=== PATIENT | male | born 1980 | race African-American/Black ===

== ENCOUNTER 2021-02-17 09:07 | Outpatient (CLI) | payer OTHER, SELFPAY ==
--- NOTE | ~2021-02-17 | US_ITS ---
US renal BI 02/17/2021 09:49 Procedure: Realtime transabdominal ultrasound of the kidneys and bladder. Indication: Proteinuria Comparison: Proteinuria Findings: Renal echotexture is normal bilaterally without hydronephrosis, contour deforming mass or r enal calculus. The right kidney measures 10 cm and left kidney measures 10.7 cm. Bladder within norm al limits. Impression: 1: Unremarkable renal ultrasound. No stones, masses or hydronephrosis. Reviewed, dictated and finalized at location B. Impression: 1: Unremarkable renal ultrasound. No stones, masses or hydronephrosis.
== END 2021-02-17 09:08 | disposition home or self-care (01) ==
LOC: ANHIMG 09:12
PROVIDERS: PCP Emergency Medicine; Visit Provider Emergency Medicine
DX: R80.9 Proteinuria, unspecified (principal)
CPT/HCPCS: 76775

== ENCOUNTER 2023-03-30 12:33 | Emergency (ER) | payer OTHER, SELFPAY ==
--- NOTE | ~2023-03-30 | CT_ITS ---
EXAMINATION: CT abdomen pelvis w con DATE: 03/30/2023 16:50 INDICATION: Constipation. Urinary retention. Low abdominal pain. TECHNIQUE: Computed tomography (CT) of the abdomen and pelvis was performed with 100 mL Omnipaque 350 intravenous contrast. Automated exposure control and iterative reconstruction technique were employe d. The dose-length product was 728.17 mGy-cm. COMPARISON: CT abdomen and pelvis 12/21/2017 FINDINGS: The visualized portions of the lung bases demonstrate mild atelectasis. There are nodules i n right middle lobe measuring up to 5 mm without change, likely benign. No pleural effusion. The hear t size is normal. No pericardial effusion. Calcified mediastinal lymph nodes are consistent with old granulomatous disease. The liver, gallbladder, spleen, pancreas, adrenal glands, and kidneys are norm al. There is a left inguinal hernia containing fat. There are no dilated loops of bowel. The appendix is normal. There are no pathologically enlarged lymph nodes. There is no free intraperitoneal fluid. Again seen is a radiopaque foreign body in the right posterior thorax musculature. There is mild lum bar spondylosis. IMPRESSION: 1. Mildly enlarged prostate. Reviewed, dictated and finalized at location A. 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
[2023-03-30 12:54] VITALS: BP 134/85; PULSE 90; RESP 16; TEMP 36.4; O2SAT 100
--- NOTE | 2023-03-30 14:59 | PC.NURSE ---
pt c/o intermittent problems inserting his straight cath. states sometimes will meet resistance. has to try different body positions and relaxation of anal spincter. never has had this problem until the last 2 weeks. pt also noting a sore sensation inside his rectum. thinks he may have injured it inserting a suppository
--- NOTE | 2023-03-30 15:47 | ED.GENADULT ---
HPI - General Adult General Chief complaint: Urogenital-Male Stated complaint: unable to self cath Time Seen by Provider: 03/30/23 15:18 History of Present Illness HPI narrative: 42-year-old male history of spinal cord injury presenting to the emergency department for evaluation difficulty straight cathing. Patient states intermittently when he is having issues with constipation he has issues with straight cathing. Patient states he is having no difficulty this morning straight cathing without difficulty prior to arrival. Patient states that while in the ED removed the remains of the suppository from his rectum and the patient was able to straight cath without issue. Related Data Allergies Allergy/AdvReac Type Severity Reaction Status Date / Time DIPHENHYDRAMINE HCL Allergy Unknown Unknown Uncoded 05/15/19 11:37 Review of Systems Review of Systems: All systems reviewed & are unremarkable except as noted in HPI and below PMFSH Past Medical History Medical History (Updated 03/31/23 @ 00:00 by David Drake) Arthritis Social History Social History Smoking status: Former smoker Smoking end date: 05/02/16 Gender identity (if verbalized by the patient): Male Exam Narrative: APPEARANCE: Well appearing, no pain, no distress, well-nourished. HEAD: normocephalic, atraumatic. EYES: PERRLA/EOMI, conjunctivae clear. NOSE: Normal no drainage EARS:TMS clear with good light reflex. THROAT: Pharynx clear, no exudate. NECK: Supple. No adenopathy, no masses. RESPIRATORY: Airway patent, respirations nonlabored. Clear to auscultation bilaterally, no rales, rhonchi, wheezing. CARDIOVASCULAR: Regular rate and rhythm without murmurs rubs or gallops. ABDOMINAL: Soft, nontender, nondistended, normal bowel sounds MUSCULOSKELETAL: Moves all extremities. Strength/ROM intact, No edema, No calf tenderness. NEURO: paraplegic, exam at baseline SKIN: Warm, dry. Normal Color PSYCHIATRIC: Normal affect/mood. Course Course Emergency Course: 42-year-old male presenting emergency department for evaluation of difficulty straight cathing. Patient reports he was able to stray cat in the emergency department. CT scan did show evidence of large prostate. patient was started on Flomax and patient was treated for prostatitis. Patient was encouraged to have close follow-up with Urology. All questions and concerns were addressed patient was well-appearing at time of discharge. Vital Signs Vital signs: Vital Signs Temperature 97.6 F 03/30/23 12:54 Pulse Rate 90 03/30/23 12:54 Respiratory Rate 16 03/30/23 12:54 Blood Pressure 134/85 03/30/23 12:54 Pulse Oximetry 100 03/30/23 12:54 Temperature 97.6 F 03/30/23 12:54 Pulse Rate 90 03/30/23 12:54 Respiratory Rate 16 03/30/23 12:54 Blood Pressure 134/85 03/30/23 12:54 Pulse Oximetry 100 03/30/23 12:54 Medical Decision Making Differential Diagnosis Differential Diagnosis: Urinary tract infection, colitis, diverticulitis, proctitis, prostatitis Vital Signs Vital Signs: Vital Signs Temperature 97.6 F 03/30/23 12:54 Pulse Rate 90 03/30/23 12:54 Respiratory Rate 16 03/30/23 12:54 Blood Pressure 134/85 03/30/23 12:54 Pulse Oximetry 100 03/30/23 12:54 Temperature 97.6 F 03/30/23 12:54 Pulse Rate 90 03/30/23 12:54 Respiratory Rate 16 03/30/23 12:54 Blood Pressure 134/85 03/30/23 12:54 Pulse Oximetry 100 03/30/23 12:54 Lab Data Lab results reviewed: Yes I reviewed the patient's lab results. 03/30/23 16:05 03/30/23 16:06 Labs: Lab Results 03/30/23 03/30/23 03/30/23 Range/Units 16:05 16:06 16:12 WBC 6.7 (4.5-10.0) K/mm3 RBC 4.80 (4.6-6.20) M/mm3 Hgb 13.8 L (14.0-18.0) g/dL Hct 41.5 L (42.0-52.0) % MCV 86.5 (80-100) fl MCH 28.8 (26-34) pg MCHC 33.3 (32-36) g/dl RDW 13.4
--- NOTE | 2023-03-30 16:12 | PC.NURSE ---
pt was able to self cath. clear urine returned. specimen sent.
[2023-03-30 16:13] LABS: Basophils Percent Auto 0.4 % (0.2-1.2); Eosinophils Absolute Auto 0.1 K/mm3 (0-0.3); Eosinophils Percent Auto 1.8 % (0-4.4); Hematocrit 41.5 % (42.0-52.0); Hemoglobin 13.8 g/dL (14.0-18.0); Immature Granulocyte Absolute 0.01 K/mm3 (0.00-0.031); Immature Granulocyte Percent A 0.1 % (0-0.5); Lymphocytes Absolute Auto 2.51 K/mm3 (0.9-3.2); Lymphocytes Percent Auto 37.3 % (18.3-44.2); Mean Corpuscular HGB Conc 33.3 g/dl (32-36); Mean Corpuscular Hemoglobin 28.8 pg (26-34); Mean Corpuscular Volume 86.5 fl (80-100); Mean Platelet Volume 10.3 fl (7.4-10.4); Monocytes Absolute Auto 0.5 K/mm3 (0.1-0.6); Monocytes Percent Auto 7.7 % (2.6-8.5); Neutrophils Absolute Auto 3.5 K/mm3 (1.3-6.7); Neutrophils Percent Auto 52.7 % (45.5-73.1); Platelet Count Result 428 k/mm3 (150-375); Red Cell Distribution Width 13.4 % (11.5-14.5); White Blood Count 6.7 K/mm3 (4.5-10.0)
[2023-03-30 16:29] LABS: Appearance Urine Clear (Clear); Bacteria Urine None Seen /hpf; Bilirubin Urine Negative (Negative); Blood Urine Negative (Negative); Color Urine Yellow (Yellow); Glucose Urine UA Negative (Negative); Ketones Urine Negative (Negative); Leukocyte Esterase Ur 1+ LEU/UL (Negative); Nitrate Urine Negative (Negative); Non Pathogenic Casts 0-2; Protein Urine Trace mg/dL (Negative); RBC Urine 0-2 /hpf (0-2); Specific Grav Ur 1.023 (1.001-1.035); Squamous Epithelial Cell Urine None seen /hpf (Few); WBC Urine 21-50 /hpf
[2023-03-30 16:36] LABS: Alanine Aminotransferase 31 U/L (6-50); Albumin Level 4.7 g/dL (3.5-5.1); Alkaline Phosphatase 65 U/L (38-126); Anion Gap 12 mmol/L (8-16); Aspartate Amino Transferase 40 U/L (17-59); Bilirubin,Total 0.6 mg/dL (0.2-1.3); Blood Urea Nitrogen 9 mg/dL (9-20); Calcium 9.5 mg/dL (8.4-10.2); Carbon Dioxide 24 mmol/L (22-30); Chloride 105 mmol/L (98-107); Estimated CRCL calculation 148 ml/min; Estimated Glomerular Filt Rate > 60; Glucose 115 mg/dL (65-110); Potassium 3.9 mmol/L (3.4-5.0); Sodium 141 mmol/L (137-145)
[2023-03-30 16:51] LABS: Add Urine Microscopic? YES
[2023-03-30] MEDS: TAMSULOSIN HCL 0.4 MG CAPSULE PO (17:43)
[2023-03-30] MEDS: DOXYCYCLINE HYCLATE 100 MG TABLET PO (17:43)
== END 2023-03-30 17:55 | disposition home or self-care (01) ==
PROVIDERS: Emergency Provider Emergency Medicine; PCP Emergency Medicine
DX: N40.0 Benign prostatic hyperplasia without lower urinary tract symptoms (principal); T14.8XXS Other injury of unspecified body region, sequela; X58.XXXS Exposure to other specified factors, sequela; M19.90 Unspecified osteoarthritis, unspecified site; Z87.891 Personal history of nicotine dependence
CPT/HCPCS: 36415; 74177; 80053; 81001; 85025; 87086; 99284; A9270; Q9967